=== PATIENT | male | born 1935 | race Caucasian/White ===

== ENCOUNTER 2016-11-24 23:41 | Emergency (ER) | payer OTHER ==
[~2016-11-24] VITALS: Ht 180.3 cm; Wt 95.4 kg
[~2016-11-24 23:41] MED LIST: ATARAX,VISTARIL25 M1 PO; COLCHICINE,COL0.6 MG PO; COLCHICINE0.6 M1 PO; COUMADIN2.5 MG PO; COUMADIN5 MG PO; Coumadin Daily Dose PO; ENALAPRIL MALEA10 MG PO; ENDOCET 5-3251 EACH PO; FISH OIL 1,2001 EAC4 PO; GLUCOTROL5 MG PO; Glucotrol PO; LASIX20 MG PO; LASIX40 MG PO; LOPRESSOR100 M1 PO; Lasix PO; Lopressor PO; METOPROLOL TART50 MG PO; NIFEDIPINE ER30 MG PO; PRILOSEC20 MG PO; PROCARDIA XL30 MG PO; Procardia XL,Adalat PO; ROCALTROL0.25 MCG PO; Rocaltrol PO; SENOKOT S,PE1 TABLET PO; TRAMADOL HCL50 MG PO; ULORIC40 MG PO; VASOTEC5 M1 PO; ZOCOR20 MG PO
[2016-11-25 00:27] LABS: MCH 29.4 PG (29.0-34.0); MCHC 32.6 G/DL (30.0-36.0); MCV 90.2 FL (86-99); MEAN PLAT.VOLUME 10.5 uM^3 (9.0-12.4); PLATELET COUNT 228 K/uL (156-360); RBC DIS.WIDTH-SD 52.9 % (39-53); RED BLOOD COUNT 3.77 M/uL (4.00-5.50)
[2016-11-25 00:30] LABS: WHITE BLOOD COUNT 6.5 K/uL (4.1-10.2)
[2016-11-25 00:36] LABS: CHLORIDE 107 mEq/L (99-109); POTASSIUM 4.4 mEq/L (3.7-5.4); SODIUM 136 mEq/L (136-147)
[2016-11-25 00:39] LABS: ANION GAP 15 MEQ/L (2-14)
[2016-11-25 00:41] LABS: GFR ESTIMATE (CALCULATED) 12 mL/min/
[2016-11-25 00:42] LABS: UREA NITROGEN (BUN) 60 mg/dL (9-23)
[2016-11-25 01:03] LABS: INTER. NORMALIZED RATIO 2.2; PROTHROMBIN TIME 23.4 (9.2-11.2); PTT 49.9 (25-32)
[2016-11-25 01:19] LABS: GLUCOSE 79 mg/dL (70-99)
[2016-11-25 02:55] LABS: ADD MIUA? YES; BILIRUBIN NEGATIVE; BLOOD SMALL; COLOR YELLOW ((YELLOW)); GLUCOSE (STRIP) NEGATIVE; KETONES NEGATIVE; LEUKOCYTES NEGATIVE; NITRITE NEGATIVE; PROTEIN (STRIP) >=500; SPECIFIC GRAVITY 1.014 (1.000-1.030); UROBILINOGEN 0.2 MG/DL (0.2-1.0)
[2016-11-25 03:10] LABS: BACTERIA RARE /HPF; EPITHELIAL CELLS RARE /HPF; MUCUS TRACE /LPF; UCUL ADDED? NO; WHITE BLOOD CELLS 0-5 /HPF (0-5)
[2016-11-25 04:09] LABS: POINT-OF-CARE METER ID UU13113702
[2016-11-25 05:20] VITALS: BP 144/83
== END 2016-11-25 05:21 | disposition short-term general hospital (02) ==
LOC: EME 23:41
PROVIDERS: Emergency Medicine
DX: S02.411A LeFort I fracture, initial encounter for closed fracture (principal); S02.412A LeFort II fracture, initial encounter for closed fracture; S02.2XXA Fracture of nasal bones, initial encounter for closed fracture; S02.19XA Other fracture of base of skull, initial encounter for closed fracture; S02.32XA Fracture of orbital floor, left side, initial encounter for closed fracture; W06.XXXA Fall from bed, initial encounter; Y92.003 Bedroom of unspecified non-institutional (private) residence as the place of occurrence of the external cause; E11.649 Type 2 diabetes mellitus with hypoglycemia without coma; R41.82 Altered mental status, unspecified; I10 Essential (primary) hypertension; E78.5 Hyperlipidemia, unspecified; Z95.1 Presence of aortocoronary bypass graft; Z79.01 Long term (current) use of anticoagulants
CPT/HCPCS: 70450; 70486; 71020; 72125; 80048; 81003; 82948; 83605; 85027; 85610; 85730; 99281; 99285

== ENCOUNTER 2016-11-29 18:44 | Inpatient (IN) | payer OTHER ==
[~2016-11-29] VITALS: Ht 180.3 cm; Wt 95.5 kg
[2016-11-29 19:12] LABS: POINT-OF-CARE METER ID UU13113702
[2016-11-29 19:17] LABS: HEMATOCRIT 27.8 % (38.0-50.0); MCH 29.7 PG (29.0-34.0); MCHC 33.8 G/DL (30.0-36.0); MEAN PLAT.VOLUME 10.5 uM^3 (9.0-12.4); PLATELET COUNT 256 K/uL (156-360); RBC DIS.WIDTH-CV 15.5 % (11.8-14.6); RBC DIS.WIDTH-SD 50.4 % (39-53); RED BLOOD COUNT 3.16 M/uL (4.00-5.50); WHITE BLOOD COUNT 9.2 K/uL (4.1-10.2)
[2016-11-29 19:20] LABS: CHLORIDE 100 mEq/L (99-109); POTASSIUM 4.6 mEq/L (3.7-5.4); SODIUM 130 mEq/L (136-147)
[2016-11-29 19:22] LABS: GLUCOSE 85 mg/dL (70-99)
[2016-11-29 19:23] LABS: ANION GAP 17 MEQ/L (2-14)
[2016-11-29 19:26] LABS: UREA NITROGEN (BUN) 78 mg/dL (9-23)
[2016-11-29 19:38] LABS: GFR ESTIMATE (CALCULATED) 9 mL/min/
[2016-11-29 19:50] LABS: D-DIMER ELISA 1.21 mg/L FEU (< 0.57)
[2016-11-29 19:56] LABS: CARBON DIOXIDE (BICARBONATE) 16.3 MEQ/L (20-31)
[2016-11-29 19:57] LABS: TROP-I INTERPRETATION NEGATIVE; TROPONIN-I 0.03 ng/mL (0.0-0.30)
[2016-11-29] MEDS ORDERED: ENALAPRIL MALEA20 MG PO (22:17)
[2016-11-29 22:18] LABS: POINT-OF-CARE METER ID UU13113702
[2016-11-29] MEDS ORDERED: GLIPIZIDE XL5 MG PO (22:20)
[2016-11-29] MEDS ORDERED: WARFARIN SODIU2.5 MG PO (22:24)
[2016-11-29] MEDS ORDERED: NIFEDIPINE ER30 MG PO (22:25)
[2016-11-29] MEDS ORDERED: OMEPRAZOLE20 MG PO (22:26)
[2016-11-29] MEDS ORDERED: LOPRESSOR25 MG PO (22:26)
[2016-11-29 22:32] LABS: PTT 66.4 (25-32)
[2016-11-29 22:39] LABS: INTER. NORMALIZED RATIO 4.4; PROTHROMBIN TIME 46.8 (9.2-11.2)
[2016-11-30 00:15] LABS: POINT-OF-CARE METER ID UU13113702
[2016-11-30 01:24] LABS: POINT-OF-CARE METER ID UU13113702
[2016-11-30 03:06] LABS: TROP-I INTERPRETATION NEGATIVE; TROPONIN-I 0.04 ng/mL (0.0-0.30)
[2016-11-30 06:23] LABS: HEMATOCRIT 25.2 % (38.0-50.0); MCH 29.4 PG (29.0-34.0); MCHC 32.9 G/DL (30.0-36.0); MCV 89.4 FL (86-99); MEAN PLAT.VOLUME 10.5 uM^3 (9.0-12.4); PLATELET COUNT 233 K/uL (156-360); RBC DIS.WIDTH-CV 15.6 % (11.8-14.6); RED BLOOD COUNT 2.82 M/uL (4.00-5.50); WHITE BLOOD COUNT 8.8 K/uL (4.1-10.2)
[2016-11-30 06:32] LABS: INTER. NORMALIZED RATIO 4.1; PROTHROMBIN TIME 43.4 (9.2-11.2)
[2016-11-30 06:36] LABS: CHLORIDE 98 mEq/L (99-109); SODIUM 124 mEq/L (136-147)
[2016-11-30 06:37] LABS: MAGNESIUM 1.7 mg/dL (1.3-2.7)
[2016-11-30 06:40] LABS: ANION GAP 14 MEQ/L (2-14)
[2016-11-30 06:42] LABS: GFR ESTIMATE (CALCULATED) 8 mL/min/
[2016-11-30 06:43] LABS: UREA NITROGEN (BUN) 84 mg/dL (9-23)
[2016-11-30 06:45] LABS: TROP-I INTERPRETATION NEGATIVE; TROPONIN-I 0.03 ng/mL (0.0-0.30)
[2016-11-30 06:47] LABS: GLUCOSE 295 mg/dL (70-99); POTASSIUM 5.8 mEq/L (3.7-5.4)
[2016-11-30 07:26] LABS: POINT-OF-CARE METER ID UU13113702
[2016-11-30 07:44] LABS: ERTH.SED.RATE 42 MM/HR (0-20)
[2016-11-30 09:51] LABS: INTACT PARATHYROID HORMONE 595 pg/mL (10-69)
[2016-11-30 16:05] VITALS: BP 125/58
[2016-11-30 17:57] LABS: ADD MIUA? YES; BILIRUBIN NEGATIVE; BLOOD SMALL; COLOR YELLOW ((YELLOW)); GLUCOSE (STRIP) 150; KETONES NEGATIVE; LEUKOCYTES NEGATIVE; NITRITE NEGATIVE; PROTEIN (STRIP) 100; UROBILINOGEN 0.2 MG/DL (0.2-1.0)
[2016-11-30 18:07] LABS: BACTERIA RARE /HPF; EPITHELIAL CELLS NONE SEEN /HPF; MUCUS TRACE /LPF; RED BLOOD CELLS 0-5 /HPF (0-5); UCUL ADDED? NO; WHITE BLOOD CELLS 0-5 /HPF (0-5)
[2016-11-30 19:31] VITALS: BP 131/61
[2016-12-01] VITALS (8 sets, daily range): BP systolic 112–143; BP diastolic 59–526
[2016-12-01 06:39] LABS: ANION GAP 14 MEQ/L (2-14); CHLORIDE 95 MEQ/L (99-109); GFR ESTIMATE (CALCULATED) 8 mL/min/; GLUCOSE 247 mg/dL (70-99); POTASSIUM 5.4 MEQ/L (3.7-5.4); SAMPLE HEMOLYSIS CHECK 0; SAMPLE ICTERIC CHECK 0; SAMPLE LIPEMIA CHECK 0; SODIUM 125 MEQ/L (136-147); UREA NITROGEN (BUN) 99 mg/dL (9-23); URIC ACID 9.4 mg/dL (3.1-9.2)
[2016-12-01 06:58] LABS: INTER. NORMALIZED RATIO 3.9; PROTHROMBIN TIME 41.9 (9.2-11.2)
[2016-12-01 07:15] LABS: EOSINOPHIL (%) 0 % (0-5); HEMATOCRIT 23.9 % (38.0-50.0); IMMATURE GRANULOCYTE (%) 0.6 % (0.0-0.7); IMMATURE GRANULOCYTE COUNT 0.1 K/uL; INSTRUMENT ABS NEUTROPHIL CT 8.2 K/uL; LYMPHOCYTE COUNT 0.3 K/uL (1.0-2.8); MCH 29.7 PG (29.0-34.0); MCHC 33.5 G/DL (30.0-36.0); MCV 88.8 FL (86-99); MEAN PLAT.VOLUME 10.4 uM^3 (9.0-12.4); MONOCYTE COUNT 0.3 K/uL (0-0.8); NEUTROPHIL (%) 93.2 % (45-76); NEUTROPHIL COUNT 8.2 K/uL (1.8-6.4); PLATELET COUNT 247 K/uL (156-360); RBC DIS.WIDTH-CV 15.2 % (11.8-14.6); RBC DIS.WIDTH-SD 49.2 % (39-53); RED BLOOD COUNT 2.69 M/uL (4.00-5.50); WHITE BLOOD COUNT 8.7 K/uL (4.1-10.2)
[2016-12-01 08:31] LABS: Estimated Average Glucose 123 mg/dL (70-123); HEMOGLOBIN A1c (GLYCOHEMOGLOB) 5.9 % HGB (Below 5.7)
[2016-12-01 10:09] LABS: HBSG INDEX 0.25
[2016-12-01 10:10] LABS: HPCA INDEX 0.13
[2016-12-01 10:11] LABS: ANTI-HEPATITIS A VIRUS (IGM) Nonreactive; HAV INDEX 0.45
[2016-12-01 10:12] LABS: ANTI-HEPATITIS B CORE (IGM) Nonreactive; HBC IgM INDEX 0.05
[2016-12-01 11:24] LABS: POINT-OF-CARE METER ID UU13113725
[2016-12-01 12:12] LABS: ADD MIUA? YES; BILIRUBIN NEGATIVE; BLOOD MODERATE; COLOR YELLOW ((YELLOW)); GLUCOSE (STRIP) 50; KETONES NEGATIVE; LEUKOCYTES TRACE; NITRITE NEGATIVE; PROTEIN (STRIP) 100; UROBILINOGEN 0.2 MG/DL (0.2-1.0)
[2016-12-01 13:09] LABS: WHITE BLOOD CELLS 0-5 /HPF (0-5)
[2016-12-01 13:10] LABS: BACTERIA 2+ /HPF; CASTS PRESENT /LPF; EPITHELIAL CELLS RARE /HPF; MUCUS 3+ /LPF
[2016-12-01 13:11] LABS: AMORPHOUS URATES CRYSTALS 1+; CRYSTALS PRESENT; FINE GRANULAR CASTS 0-5 /LPF; HYALINE CASTS 0-5 /LPF
[2016-12-01 14:41] LABS: AHBS INDEX 0.53; HEPATITIS B SURFACE ANTIBODY Nonreactive
[2016-12-01 20:46] LABS: POINT-OF-CARE METER ID UU13113725
[2016-12-02 03:12] VITALS: BP 136/71
[2016-12-02 05:46] LABS: POINT-OF-CARE METER ID UU13113725
[2016-12-02 06:00] LABS: EOSINOPHIL (%) 0 % (0-5); HEMATOCRIT 23.1 % (38.0-50.0); IMMATURE GRANULOCYTE (%) 0.8 % (0.0-0.7); IMMATURE GRANULOCYTE COUNT 0.1 K/uL; INSTRUMENT ABS NEUTROPHIL CT 6.3 K/uL; LYMPHOCYTE COUNT 0.5 K/uL (1.0-2.8); MCH 29.9 PG (29.0-34.0); MCHC 34.6 G/DL (30.0-36.0); MCV 86.2 FL (86-99); MEAN PLAT.VOLUME 10.3 uM^3 (9.0-12.4); MONOCYTE (%) 8.3 % (3-12); MONOCYTE COUNT 0.6 K/uL (0-0.8); NEUTROPHIL (%) 83.8 % (45-76); NEUTROPHIL COUNT 6.3 K/uL (1.8-6.4); PLATELET COUNT 248 K/uL (156-360); RBC DIS.WIDTH-CV 14.9 % (11.8-14.6); RBC DIS.WIDTH-SD 46.9 % (39-53); RED BLOOD COUNT 2.68 M/uL (4.00-5.50); WHITE BLOOD COUNT 7.5 K/uL (4.1-10.2)
[2016-12-02 06:17] LABS: INTER. NORMALIZED RATIO 3.7; PROTHROMBIN TIME 38.9 (9.2-11.2)
[2016-12-02 06:25] LABS: ANION GAP 15 MEQ/L (2-14); CHLORIDE 87 MEQ/L (99-109); GLUCOSE 225 mg/dL (70-99); SAMPLE HEMOLYSIS CHECK 0; SAMPLE ICTERIC CHECK 0; SAMPLE LIPEMIA CHECK 0; SODIUM 128 MEQ/L (136-147); UREA NITROGEN (BUN) 68 mg/dL (9-23)
[2016-12-02 06:26] LABS: GFR ESTIMATE (CALCULATED) 13 mL/min/
[2016-12-02 07:04] VITALS: BP 128/62
[2016-12-02 11:15] VITALS: BP 110/51
[2016-12-02 14:56] VITALS: BP 122/56
[2016-12-02 16:34] LABS: POINT-OF-CARE METER ID UU13113725
[2016-12-02 19:15] VITALS: BP 119/56
[2016-12-02 20:41] LABS: POINT-OF-CARE METER ID UU13113725
[2016-12-02 23:10] VITALS: BP 135/64
[2016-12-03 03:26] VITALS: BP 137/69
[2016-12-03 06:01] LABS: POINT-OF-CARE METER ID UU13113725
[2016-12-03 06:50] LABS: HEMATOCRIT 25.8 % (38.0-50.0); MCH 29.6 PG (29.0-34.0); MCHC 33.7 G/DL (30.0-36.0); MCV 87.8 FL (86-99); MEAN PLAT.VOLUME 10.2 uM^3 (9.0-12.4); PLATELET COUNT 286 K/uL (156-360); RBC DIS.WIDTH-SD 48.2 % (39-53); RED BLOOD COUNT 2.94 M/uL (4.00-5.50); WHITE BLOOD COUNT 9.6 K/uL (4.1-10.2)
[2016-12-03 07:12] LABS: INTER. NORMALIZED RATIO 3.3; PROTHROMBIN TIME 34.8 (9.2-11.2)
[2016-12-03 07:28] VITALS: BP 128/72
[2016-12-03 07:28] LABS: ANION GAP 14 MEQ/L (2-14); CHLORIDE 94 MEQ/L (99-109); GFR ESTIMATE (CALCULATED) 15 mL/min/; GLUCOSE 189 mg/dL (70-99); POTASSIUM 3.6 MEQ/L (3.7-5.4); SAMPLE HEMOLYSIS CHECK 0; SAMPLE ICTERIC CHECK 0; SAMPLE LIPEMIA CHECK 0; UREA NITROGEN (BUN) 51 mg/dL (9-23)
[2016-12-03 07:37] LABS: SODIUM 135 MEQ/L (136-147)
[2016-12-03 14:47] LABS: POINT-OF-CARE METER ID UU13113725
[2016-12-03 15:15] VITALS: BP 107/51
[2016-12-03 16:37] LABS: POINT-OF-CARE METER ID UU13113725
[2016-12-03 20:38] LABS: POINT-OF-CARE METER ID UU13113725
[2016-12-03 22:39] VITALS: BP 143/60
[2016-12-04 05:44] LABS: POINT-OF-CARE METER ID UU13113725
[2016-12-04 07:06] LABS: INTER. NORMALIZED RATIO 2.2; PROTHROMBIN TIME 23.3 (9.2-11.2)
[2016-12-04 07:42] VITALS: BP 136/67
[2016-12-04 16:33] VITALS: BP 184/80
[2016-12-04 16:33] LABS: POINT-OF-CARE METER ID UU13113725
[2016-12-04 20:43] LABS: POINT-OF-CARE METER ID UU13113725
[2016-12-04 22:37] VITALS: BP 160/70
[2016-12-05 06:44] LABS: INTER. NORMALIZED RATIO 1.8; PROTHROMBIN TIME 18.7 (9.2-11.2)
[2016-12-05 08:53] LABS: EOSINOPHIL (%) 0.2 % (0-5); HEMATOCRIT 26.7 % (38.0-50.0); IMMATURE GRANULOCYTE COUNT 0.2 K/uL; INSTRUMENT ABS NEUTROPHIL CT 8.9 K/uL; LYMPHOCYTE COUNT 1.4 K/uL (1.0-2.8); MCH 29.3 PG (29.0-34.0); MCHC 32.6 G/DL (30.0-36.0); MCV 89.9 FL (86-99); MEAN PLAT.VOLUME 10.3 uM^3 (9.0-12.4); MONOCYTE (%) 9.5 % (3-12); MONOCYTE COUNT 1.1 K/uL (0-0.8); NEUTROPHIL (%) 75.8 % (45-76); NEUTROPHIL COUNT 8.9 K/uL (1.8-6.4); NRBC (%) 0.2 /100 WBC (0-0); PLATELET COUNT 300 K/uL (156-360); RBC DIS.WIDTH-CV 15.1 % (11.8-14.6); RED BLOOD COUNT 2.97 M/uL (4.00-5.50); WHITE BLOOD COUNT 11.7 K/uL (4.1-10.2)
[2016-12-05 09:08] LABS: ANION GAP 11 MEQ/L (2-14); CHLORIDE 95 MEQ/L (99-109); SAMPLE HEMOLYSIS CHECK 0; SAMPLE ICTERIC CHECK 0; SAMPLE LIPEMIA CHECK 0; SODIUM 135 MEQ/L (136-147)
[2016-12-05 09:16] LABS: GFR ESTIMATE (CALCULATED) 15 mL/min/; GLUCOSE 78 mg/dL (70-99); UREA NITROGEN (BUN) 68 mg/dL (9-23)
[2016-12-05 12:03] VITALS: BP 152/67
[2016-12-05 12:50] LABS: UR CREATININE CONCENTRATION 90.2 MG/DL
[2016-12-05] MEDS ORDERED: DOXYCYCLINE HY100 M3 PO (13:33)
[2016-12-05] MEDS ORDERED: CALCIUM ACETAT667 MG PO (13:33)
== END 2016-12-05 15:15 | disposition home or self-care (01) | DRG 982 ==
LOC: EME 18:44 → 5EAST 11-30 00:12 → EDOF 11-30 00:12 → 5EAST 11-30 15:38
PROVIDERS: Emergency Medicine; Family Medicine; Hospitalist; Internal Medicine Nephrology
PROC: 05HM3DZ Insertion of Intraluminal Device into Right Internal Jugular Vein, Percutaneous Approach (ICD-10-PCS; principal; 2016-12-01)
PROC: 5A1D60Z (ICD-10-PCS; 2016-12-01)
DX: N17.9 Acute kidney failure, unspecified (principal); E87.2 Acidosis; E87.1 Hypo-osmolality and hyponatremia; I12.0 Hypertensive chronic kidney disease with stage 5 chronic kidney disease or end stage renal disease; N18.6 End stage renal disease; E87.5 Hyperkalemia; R33.9 Retention of urine, unspecified; E11.65 Type 2 diabetes mellitus with hyperglycemia; J20.9 Acute bronchitis, unspecified; I25.5 Ischemic cardiomyopathy; D63.1 Anemia in chronic kidney disease; I25.2 Old myocardial infarction; Z99.2 Dependence on renal dialysis; E11.22 Type 2 diabetes mellitus with diabetic chronic kidney disease; E11.649 Type 2 diabetes mellitus with hypoglycemia without coma; Z79.01 Long term (current) use of anticoagulants; Z86.718 Personal history of other venous thrombosis and embolism; M10.9 Gout, unspecified; K21.9 Gastro-esophageal reflux disease without esophagitis; E78.5 Hyperlipidemia, unspecified; Z96.651 Presence of right artificial knee joint; F17.220 Nicotine dependence, chewing tobacco, uncomplicated; I25.10 Atherosclerotic heart disease of native coronary artery without angina pectoris; S02.92XD Unspecified fracture of facial bones, subsequent encounter for fracture with routine healing; K42.9 Umbilical hernia without obstruction or gangrene; S00.11XD Contusion of right eyelid and periocular area, subsequent encounter; S00.12XD Contusion of left eyelid and periocular area, subsequent encounter; I51.7 Cardiomegaly; E87.6 Hypokalemia; E66.9 Obesity, unspecified; R79.1 Abnormal coagulation profile; T45.515A Adverse effect of anticoagulants, initial encounter; M19.90 Unspecified osteoarthritis, unspecified site; M75.121 Complete rotator cuff tear or rupture of right shoulder, not specified as traumatic; Z68.29 Body mass index [BMI] 29.0-29.9, adult; Z95.5 Presence of coronary angioplasty implant and graft; Z82.49 Family history of ischemic heart disease and other diseases of the circulatory system
CPT/HCPCS: 71020; 73221; 76770; 78582; 80048; 80069; 80074; 81003; 81050; 82272; 82330; 82575; 82803; 82948; 83036; 83735; 83935; 83970; 84100; 84300; 84484; 84550; 85025; 85027; 85379; 85610; 85651; 85730; 86706; 87086; 93005; 94640; 94640 76; 99202; 99281; 99285; A9540; A9567; C1750; C1894; C9113; J0690; J0881; J1644; J1815; J1956; J2250; J2405; J2920; J3010; J7512; S0020

== ENCOUNTER 2017-01-15 08:35 | Inpatient (IN) | payer OTHER ==
[~2017-01-15] VITALS: Ht 177.8 cm; Wt 96.8 kg
[~2017-01-15 08:35] MED LIST changes: +CALCIUM ACETAT667 MG PO; +DOXYCYCLINE HY100 M3 PO; +ENALAPRIL MALEA20 MG PO; +GLIPIZIDE XL5 MG PO; +LOPRESSOR25 MG PO; +OMEPRAZOLE20 MG PO; +WARFARIN SODIU2.5 MG PO
[2017-01-15 10:17] LABS: BASOPHIL COUNT 0.1 K/uL (0-0.1); EOSINOPHIL (%) 0.1 % (0-5); HEMATOCRIT 37.8 % (38.0-50.0); IMMATURE GRANULOCYTE (%) 0.7 % (0.0-0.7); IMMATURE GRANULOCYTE COUNT 0.1 K/uL; INSTRUMENT ABS NEUTROPHIL CT 10.6 K/uL; LYMPHOCYTE COUNT 1.1 K/uL (1.0-2.8); MCH 29.4 PG (29.0-34.0); MEAN PLAT.VOLUME 11.7 uM^3 (9.0-12.4); MONOCYTE (%) 7.5 % (3-12); NEUTROPHIL (%) 82.5 % (45-76); NEUTROPHIL COUNT 10.6 K/uL (1.8-6.4); NRBC (%) 0.2 /100 WBC (0-0); PLATELET COUNT 229 K/uL (156-360); RBC DIS.WIDTH-CV 15.1 % (11.8-14.6); RBC DIS.WIDTH-SD 50.6 % (39-53); RED BLOOD COUNT 4.11 M/uL (4.00-5.50); WHITE BLOOD COUNT 12.8 K/uL (4.1-10.2)
[2017-01-15 10:26] LABS: CHLORIDE 98 mEq/L (99-109); POTASSIUM 3.9 mEq/L (3.7-5.4); SODIUM 133 mEq/L (136-147)
[2017-01-15 10:28] LABS: GLUCOSE 324 mg/dL (70-99)
[2017-01-15 10:29] LABS: ANION GAP 13 MEQ/L (2-14)
[2017-01-15 10:32] LABS: GFR ESTIMATE (CALCULATED) 19 mL/min/; UREA NITROGEN (BUN) 17 mg/dL (9-23)
[2017-01-15 10:34] LABS: URIC ACID 4.4 mg/dL (3.1-9.2)
[2017-01-15] MEDS ORDERED: WARFARIN SODIUM5 MG PO (14:00)
[2017-01-15] MEDS ORDERED: GLIPIZIDE5 MG PO (14:02)
[2017-01-15] MEDS ORDERED: NABI650T PO (14:03)
[2017-01-15] MEDS ORDERED: ALLOPURINOL100 MG PO (14:03)
[2017-01-15 16:40] VITALS: BP 192/81
[2017-01-15 16:47] LABS: POINT-OF-CARE METER ID UU14174225
[2017-01-15 17:43] LABS: INTER. NORMALIZED RATIO 1.7; PROTHROMBIN TIME 17.6 (9.2-11.2)
[2017-01-15 19:39] VITALS: BP 146/72
[2017-01-16] VITALS: BP 156/66
[2017-01-16 05:00] VITALS: BP 141/74
[2017-01-16 07:39] LABS: HEMATOCRIT 37.7 % (38.0-50.0); MCH 28.7 PG (29.0-34.0); MCHC 30.2 G/DL (30.0-36.0); MEAN PLAT.VOLUME 10.7 uM^3 (9.0-12.4); PLATELET COUNT 248 K/uL (156-360); RBC DIS.WIDTH-CV 15.3 % (11.8-14.6); RED BLOOD COUNT 3.97 M/uL (4.00-5.50)
[2017-01-16 07:44] VITALS: BP 127/82
[2017-01-16 08:03] LABS: ANION GAP 12 MEQ/L (2-14); CHLORIDE 105 MEQ/L (99-109); GFR ESTIMATE (CALCULATED) 20 mL/min/; INTER. NORMALIZED RATIO 1.8; POTASSIUM 3.8 MEQ/L (3.7-5.4); SAMPLE HEMOLYSIS CHECK 0; SAMPLE ICTERIC CHECK 0; SAMPLE LIPEMIA CHECK 0; SODIUM 138 MEQ/L (136-147); UREA NITROGEN (BUN) 21 mg/dL (9-23)
[2017-01-16 08:04] LABS: GLUCOSE 76 mg/dL (70-99); VANCOMYCIN, TROUGH 15.6 MCG/ML (10-20)
[2017-01-16 15:40] VITALS: BP 141/71
[2017-01-16 16:40] LABS: POINT-OF-CARE METER ID UU14188625
[2017-01-16 21:12] LABS: POINT-OF-CARE METER ID UU14188625
[2017-01-17 00:13] VITALS: BP 140/73
[2017-01-17 04:11] VITALS: BP 133/71
[2017-01-17 06:11] LABS: BASOPHIL COUNT 0.1 K/uL (0-0.1); EOSINOPHIL (%) 2.1 % (0-5); EOSINOPHIL COUNT 0.2 K/uL (0-0.3); HEMATOCRIT 32.1 % (38.0-50.0); IMMATURE GRANULOCYTE (%) 0.4 % (0.0-0.7); INSTRUMENT ABS NEUTROPHIL CT 5.5 K/uL; MCH 29.2 PG (29.0-34.0); MCHC 31.2 G/DL (30.0-36.0); MCV 93.6 FL (86-99); MEAN PLAT.VOLUME 10.5 uM^3 (9.0-12.4); MONOCYTE (%) 9.4 % (3-12); MONOCYTE COUNT 0.8 K/uL (0-0.8); NEUTROPHIL (%) 64.2 % (45-76); NEUTROPHIL COUNT 5.5 K/uL (1.8-6.4); PLATELET COUNT 245 K/uL (156-360); RBC DIS.WIDTH-CV 14.9 % (11.8-14.6); RBC DIS.WIDTH-SD 51.4 % (39-53); RED BLOOD COUNT 3.43 M/uL (4.00-5.50); WHITE BLOOD COUNT 8.5 K/uL (4.1-10.2)
[2017-01-17 06:25] LABS: INTER. NORMALIZED RATIO 1.8; PROTHROMBIN TIME 18.2 (9.2-11.2)
[2017-01-17 06:33] LABS: ANION GAP 9 MEQ/L (2-14); CHLORIDE 104 MEQ/L (99-109); GFR ESTIMATE (CALCULATED) 29 mL/min/; GLUCOSE 89 mg/dL (70-99); POTASSIUM 3.4 MEQ/L (3.7-5.4); SAMPLE HEMOLYSIS CHECK 0; SAMPLE ICTERIC CHECK 0; SAMPLE LIPEMIA CHECK 0; SODIUM 139 MEQ/L (136-147); UREA NITROGEN (BUN) 9 mg/dL (9-23)
[2017-01-17 08:13] VITALS: BP 160/80
[2017-01-17] MEDS ORDERED: KEFLEX500 MG PO (11:11)
[2017-01-17 11:36] LABS: POINT-OF-CARE METER ID UU14188625
== END 2017-01-17 11:55 | disposition home or self-care (01) | DRG 602 ==
LOC: EME 08:35 → EDOF 12:39 → 5SOUTH 16:20
PROVIDERS: Emergency Medicine; Hospitalist; Internal Medicine
DX: L03.114 Cellulitis of left upper limb (principal); E11.22 Type 2 diabetes mellitus with diabetic chronic kidney disease; I12.0 Hypertensive chronic kidney disease with stage 5 chronic kidney disease or end stage renal disease; N18.6 End stage renal disease; Z99.2 Dependence on renal dialysis; I25.10 Atherosclerotic heart disease of native coronary artery without angina pectoris; I25.5 Ischemic cardiomyopathy; Z86.718 Personal history of other venous thrombosis and embolism; K21.9 Gastro-esophageal reflux disease without esophagitis; E78.5 Hyperlipidemia, unspecified; M10.9 Gout, unspecified; Z96.651 Presence of right artificial knee joint; Z72.0 Tobacco use; E11.65 Type 2 diabetes mellitus with hyperglycemia; R42 Dizziness and giddiness; S60.51 Abrasion of hand; W10.1XXS Fall (on)(from) sidewalk curb, sequela; S00.93XD Contusion of unspecified part of head, subsequent encounter; W10.1XXD Fall (on)(from) sidewalk curb, subsequent encounter
CPT/HCPCS: 73110; 73130; 73200; 80048; 80202; 81003; 82948; 83605; 84550; 85025; 85027; 85610; 87040; 93971; 99281; 99285; J0696; J1644; J1815; J1885; J2270; J3010; J3370; J7030; J7050

== ENCOUNTER 2017-01-25 08:48 | Day surgery (SDC) | payer OTHER ==
[~2017-01-25] VITALS: Ht 177.8 cm; Wt 96.8 kg
[~2017-01-25 08:48] MED LIST changes: +ALLOPURINOL100 MG PO; +GLIPIZIDE5 MG PO; +KEFLEX500 MG PO; +NABI650T PO; +WARFARIN SODIUM5 MG PO
[2017-01-25 09:25] LABS: POINT-OF-CARE METER ID UU14174212
[2017-01-25 09:27] LABS: HEMATOCRIT 38.7 % (38.0-50.0); MCH 28.8 PG (29.0-34.0); MCHC 31.5 G/DL (30.0-36.0); MCV 91.3 FL (86-99); MEAN PLAT.VOLUME 10.7 uM^3 (9.0-12.4); PLATELET COUNT 241 K/uL (156-360); RBC DIS.WIDTH-CV 14.6 % (11.8-14.6); RED BLOOD COUNT 4.24 M/uL (4.00-5.50); WHITE BLOOD COUNT 8.6 K/uL (4.1-10.2)
[2017-01-25 09:42] VITALS: BP 158/79
[2017-01-25 09:45] LABS: INTER. NORMALIZED RATIO 1.1; PROTHROMBIN TIME 10.7 (9.2-11.2)
[2017-01-25 10:00] LABS: ANION GAP 11 MEQ/L (2-14); CHLORIDE 100 MEQ/L (99-109); GFR ESTIMATE (CALCULATED) 26 mL/min/; GLUCOSE 140 mg/dL (70-99); SAMPLE HEMOLYSIS CHECK 0; SAMPLE ICTERIC CHECK 0; SAMPLE LIPEMIA CHECK 0; SODIUM 139 MEQ/L (136-147); UREA NITROGEN (BUN) 12 mg/dL (9-23)
[2017-01-25 10:36] LABS: METH RESISTANT S AUREUS PCR NEGATIVE (NEGATIVE)
[2017-01-25 10:53] LABS: PROBE CHECK PASS; SPECIMEN PROCESSING CONTROL PASS
[2017-01-25 12:44] LABS: POINT-OF-CARE METER ID UU13113675; POINT-OF-CARE USER ID 515036437
[2017-01-25 13:10] VITALS: BP 176/79
[2017-01-25 13:54] VITALS: BP 196/97
== END 2017-01-25 14:10 | disposition home or self-care (01) ==
LOC: SDC
PROVIDERS: Surgery
PROC: 03180ZD Bypass Left Brachial Artery to Upper Arm Vein, Open Approach (ICD-10-PCS; principal; 2017-01-25)
DX: I12.0 Hypertensive chronic kidney disease with stage 5 chronic kidney disease or end stage renal disease (principal); E11.22 Type 2 diabetes mellitus with diabetic chronic kidney disease; N18.6 End stage renal disease; Z99.2 Dependence on renal dialysis; E78.5 Hyperlipidemia, unspecified; M19.90 Unspecified osteoarthritis, unspecified site; Z95.1 Presence of aortocoronary bypass graft; Z85.46 Personal history of malignant neoplasm of prostate; Z79.01 Long term (current) use of anticoagulants; Z79.84 Long term (current) use of oral hypoglycemic drugs; F17.220 Nicotine dependence, chewing tobacco, uncomplicated; Z83.3 Family history of diabetes mellitus; Z82.49 Family history of ischemic heart disease and other diseases of the circulatory system; Z82.3 Family history of stroke
CPT/HCPCS: 80048; 82948; 85027; 85610; 87641; 93005; J0690; J1644; J2405; J2720; J3010

== ENCOUNTER 2017-03-08 02:08 | Emergency (ER) | payer OTHER ==
[~2017-03-08] VITALS: Ht 177.8 cm; Wt 93.9 kg
[2017-03-08 03:18] LABS: HEMATOCRIT 41.2 % (38.0-50.0); MCH 29.2 PG (29.0-34.0); MCV 88.4 FL (86-99); MEAN PLAT.VOLUME 10.2 uM^3 (9.0-12.4); PLATELET COUNT 243 K/uL (156-360); RBC DIS.WIDTH-CV 14.7 % (11.8-14.6); RBC DIS.WIDTH-SD 47.3 % (39-53); RED BLOOD COUNT 4.66 M/uL (4.00-5.50)
[2017-03-08 03:29] LABS: CHLORIDE 90 mEq/L (99-109); POTASSIUM 3.7 mEq/L (3.7-5.4); SODIUM 129 mEq/L (136-147)
[2017-03-08 03:30] LABS: GLUCOSE 230 mg/dL (70-99)
[2017-03-08 03:32] LABS: ANION GAP 14 MEQ/L (2-14)
[2017-03-08 03:34] LABS: GFR ESTIMATE (CALCULATED) 11 mL/min/
[2017-03-08 03:35] LABS: UREA NITROGEN (BUN) 24 mg/dL (9-23)
[2017-03-08] MEDS ORDERED: PERCOCET 5/31 TABLET PO (04:01)
[2017-03-08] MEDS ORDERED: VALIUM5 MG PO (04:01)
[2017-03-08 04:27] VITALS: BP 138/73
== END 2017-03-08 04:27 | disposition home or self-care (01) ==
LOC: EME 02:08
PROVIDERS: Emergency Medicine
DX: S46.001A Unspecified injury of muscle(s) and tendon(s) of the rotator cuff of right shoulder, initial encounter (principal); G89.11 Acute pain due to trauma; Z91.81 History of falling; E11.9 Type 2 diabetes mellitus without complications; E78.5 Hyperlipidemia, unspecified; I25.2 Old myocardial infarction; Z95.1 Presence of aortocoronary bypass graft; Z79.84 Long term (current) use of oral hypoglycemic drugs; Z79.01 Long term (current) use of anticoagulants
CPT/HCPCS: 73030; 80048; 85027; 99281; 99284

== ENCOUNTER → 2017-03-31 | Outpatient (CLI) | payer OTHER ==
[~2017-03-31] MED LIST changes: +PERCOCET 5/31 TABLET PO; +VALIUM5 MG PO
== END | disposition home or self-care (01) ==
LOC: AMB 12:30
PROC: 05PYX3Z Removal of Infusion Device from Upper Vein, External Approach (ICD-10-PCS; principal; 2017-03-31)
DX: N18.6 End stage renal disease (principal)

== ENCOUNTER 2017-04-19 12:53 | Day surgery (SDC) | payer OTHER ==
[2017-04-19 13:29] LABS: POINT-OF-CARE METER ID UU13113696
[2017-04-19 14:43] LABS: METH RESISTANT S AUREUS PCR NEGATIVE (NEGATIVE)
[2017-04-19 14:52] LABS: PROBE CHECK PASS; SPECIMEN PROCESSING CONTROL PASS
== END 2017-04-19 15:05 | disposition home or self-care (01) ==
LOC: CATH 12:53
PROVIDERS: Surgery
DX: T82.858A Stenosis of other vascular prosthetic devices, implants and grafts, initial encounter (principal); N18.6 End stage renal disease; Z99.2 Dependence on renal dialysis; Z79.01 Long term (current) use of anticoagulants
CPT/HCPCS: 82948; 87641; C1725; C1769; C1894; J1644; J2250; J3010

== ENCOUNTER 2017-06-20 06:53 | Day surgery (SDC) | payer OTHER ==
[~2017-06-20] VITALS: Ht 172.7 cm; Wt 95.0 kg
[~2017-06-20 06:53] MED LIST changes: +RENO CAPS SOFTGE1 MG PO
[2017-06-20 07:39] LABS: POINT-OF-CARE METER ID UU13113696
[2017-06-20 08:42] LABS: METH RESISTANT S AUREUS PCR NEGATIVE (NEGATIVE)
[2017-06-20 08:49] LABS: PROBE CHECK PASS; SPECIMEN PROCESSING CONTROL PASS
== END 2017-06-20 10:09 | disposition home or self-care (01) ==
LOC: CATH 06:53
PROVIDERS: Surgery
DX: T82.858A Stenosis of other vascular prosthetic devices, implants and grafts, initial encounter (principal); N18.6 End stage renal disease; Z99.2 Dependence on renal dialysis; Z79.01 Long term (current) use of anticoagulants
CPT/HCPCS: 82948; 87641; C1725; C1769; C1874; C1894; J1644; J2250; J3010

== ENCOUNTER 2017-10-05 07:16 | Day surgery (SDC) | payer OTHER ==
[~2017-10-05] VITALS: Ht 175.3 cm; Wt 95.2 kg
== END 2017-10-05 09:55 | disposition home or self-care (01) ==
LOC: CATH 07:16
PROVIDERS: Surgery
DX: T82.590A Other mechanical complication of surgically created arteriovenous fistula, initial encounter (principal); I87.1 Compression of vein; I12.0 Hypertensive chronic kidney disease with stage 5 chronic kidney disease or end stage renal disease; E11.22 Type 2 diabetes mellitus with diabetic chronic kidney disease; N18.6 End stage renal disease; Z99.2 Dependence on renal dialysis; Z79.84 Long term (current) use of oral hypoglycemic drugs; E78.00 Pure hypercholesterolemia, unspecified; Z85.46 Personal history of malignant neoplasm of prostate
CPT/HCPCS: 82948; 87641; C1725; C1769; C1894; J1644; J2250; J3010

== ENCOUNTER 2018-02-22 07:35 | Day surgery (SDC) | payer OTHER ==
[~2018-02-22] VITALS: Ht 177.8 cm; Wt 95.0 kg
[2018-02-22] MEDS ORDERED: PERCOCET 5/31 TABLET PO (08:10)
== END 2018-02-22 09:37 | disposition home or self-care (01) ==
LOC: CATH 07:35
PROVIDERS: Surgery
DX: T82.858A Stenosis of other vascular prosthetic devices, implants and grafts, initial encounter (principal); I12.0 Hypertensive chronic kidney disease with stage 5 chronic kidney disease or end stage renal disease; E11.22 Type 2 diabetes mellitus with diabetic chronic kidney disease; N18.6 End stage renal disease; Z99.2 Dependence on renal dialysis; M19.90 Unspecified osteoarthritis, unspecified site; E78.5 Hyperlipidemia, unspecified; Z85.46 Personal history of malignant neoplasm of prostate; Z87.891 Personal history of nicotine dependence; Z79.84 Long term (current) use of oral hypoglycemic drugs; Y83.2 Surgical operation with anastomosis, bypass or graft as the cause of abnormal reaction of the patient, or of later complication, without mention of misadventure at the time of the procedure
CPT/HCPCS: 82948; 87641; C1725; C1769; C1874; C1894; J1644; J2250; J3010; S0020

== ENCOUNTER 2018-03-26 17:03 | Emergency (ER) | payer OTHER ==
[~2018-03-26] VITALS: Ht 167.6 cm; Wt 96.8 kg
[2018-03-26 18:38] LABS: HEMATOCRIT 34.5 % (38.0-50.0); HEMOGLOBIN 11.6 G/DL (12.5-16.6); MCH 32.6 PG (29.0-34.0); MCHC 33.6 G/DL (30.0-36.0); MCV 96.9 FL (86-99); PLATELET COUNT 213 K/uL (156-360); RBC DIS.WIDTH-CV 14.6 % (11.8-14.6); RBC DIS.WIDTH-SD 51.8 % (39-53); RED BLOOD COUNT 3.56 M/uL (4.00-5.50); WHITE BLOOD COUNT 8.6 K/uL (4.1-10.2)
[2018-03-26 18:46] LABS: INTER. NORMALIZED RATIO 1.5
[2018-03-26 18:49] LABS: PTT 33.3 SEC (25-37)
[2018-03-26 19:06] LABS: CHLORIDE 93 MEQ/L (99-109); SODIUM 137 MEQ/L (136-147)
[2018-03-26 19:11] LABS: CREATININE 3.4 MG/DL (0.6-1.3); GFR ESTIMATE (CALCULATED) 19 mL/min/ (58.99-99999); GLUCOSE 233 mg/dL (70-99); UREA NITROGEN (BUN) 9 mg/dL (9-23)
[2018-03-26 20:37] VITALS: BP 153/76
== END 2018-03-26 20:39 | disposition home or self-care (01) ==
LOC: EME 17:03
PROVIDERS: Physician Assistant
DX: S01.01XA Laceration without foreign body of scalp, initial encounter (principal); R79.1 Abnormal coagulation profile; W07.XXXA Fall from chair, initial encounter; Z79.01 Long term (current) use of anticoagulants; Z86.718 Personal history of other venous thrombosis and embolism; Z23 Encounter for immunization; E78.5 Hyperlipidemia, unspecified; E11.22 Type 2 diabetes mellitus with diabetic chronic kidney disease; N18.9 Chronic kidney disease, unspecified; Z99.2 Dependence on renal dialysis; Z95.1 Presence of aortocoronary bypass graft; I25.2 Old myocardial infarction
CPT/HCPCS: 70450; 72125; 80048; 85027; 85610; 85730; 99281; 99283

== ENCOUNTER 2018-05-12 15:36 | Emergency (ER) | payer OTHER ==
[~2018-05-12] VITALS: Ht 170.2 cm; Wt 99.6 kg
[2018-05-12 16:27] LABS: HEMATOCRIT 37.4 % (38.0-50.0); HEMOGLOBIN 13.1 G/DL (12.5-16.6); MCH 32.7 PG (29.0-34.0); MCV 93.3 FL (86-99); PLATELET COUNT 230 K/uL (156-360); RBC DIS.WIDTH-CV 13.8 % (11.8-14.6); RBC DIS.WIDTH-SD 46.8 % (39-53); RED BLOOD COUNT 4.01 M/uL (4.00-5.50); WHITE BLOOD COUNT 9.1 K/uL (4.1-10.2)
[2018-05-12 16:39] LABS: ALBUMIN 3.7 g/dL (3.2-4.8)
[2018-05-12 16:40] LABS: CHLORIDE 96 mEq/L (99-109); SODIUM 132 mEq/L (136-147)
[2018-05-12 16:42] LABS: GLUCOSE 93 mg/dL (70-99); TOTAL PROTEIN 6.9 g/dL (6.4-8.3)
[2018-05-12 16:44] LABS: TOTAL BILIRUBIN 0.5 mg/dL (0.0-1.0)
[2018-05-12 16:45] LABS: ALKALINE PHOSPHATASE 94 IU/L (3-129)
[2018-05-12 16:46] LABS: CREATININE 3.9 mg/dL (0.6-1.3); GFR ESTIMATE (CALCULATED) 16 mL/min/ (58.99-99999)
[2018-05-12 16:47] LABS: AST (GOT) 46 IU/L (2-34); UREA NITROGEN (BUN) 23 mg/dL (9-23)
[2018-05-12 16:49] LABS: TROP-I INTERPRETATION NEGATIVE; TROPONIN-I 0.04 ng/mL (0.0-0.30)
[2018-05-12 16:49] LABS: ALT (GPT) 36 IU/L (3-49)
[2018-05-12 18:17] LABS: APPEARANCE CLEAR ((CLEAR)); BILIRUBIN NEGATIVE; BLOOD NEGATIVE; COLOR YELLOW ((YELLOW)); GLUCOSE (STRIP) NEGATIVE; KETONES NEGATIVE; LEUKOCYTES NEGATIVE; NITRITE NEGATIVE; PROTEIN (STRIP) >=500; SPECIFIC GRAVITY 1.015 (1.000-1.030)
[2018-05-12 18:26] LABS: BACTERIA RARE /HPF; EPITHELIAL CELLS RARE /HPF; HYALINE CASTS 0-5 /LPF; MUCUS NONE SEEN /LPF; RED BLOOD CELLS 0-5 /HPF (0-5); UCUL ADDED? NO; WHITE BLOOD CELLS 0-5 /HPF (0-5)
[2018-05-12 20:33] VITALS: BP 141/82
== END 2018-05-12 20:34 | disposition home or self-care (01) ==
LOC: EME 15:36
PROVIDERS: Emergency Medicine Emergency Medical Services
DX: I13.2 Hypertensive heart and chronic kidney disease with heart failure and with stage 5 chronic kidney disease, or end stage renal disease (principal); E11.22 Type 2 diabetes mellitus with diabetic chronic kidney disease; N18.6 End stage renal disease; I50.9 Heart failure, unspecified; Z99.2 Dependence on renal dialysis; R06.00 Dyspnea, unspecified; R53.1 Weakness; R94.31 Abnormal electrocardiogram [ECG] [EKG]; Z91.11 Patient's noncompliance with dietary regimen; E78.5 Hyperlipidemia, unspecified; I25.2 Old myocardial infarction; Z95.1 Presence of aortocoronary bypass graft; Z79.01 Long term (current) use of anticoagulants; Z79.84 Long term (current) use of oral hypoglycemic drugs
CPT/HCPCS: 71045; 80053; 81003; 84484; 85027; 93005; 99281; 99284